=== PATIENT | female | born 1955 | race Two or more races ===

== ENCOUNTER 2018-04-01 09:35 | Emergency (ER) | payer OTHER, BC ==
[2018-04-01 09:53] VITALS: BMI 27.0
[2018-04-01] MEDS ORDERED: SODIUM CHLORIDE 1,000 ML IV STA ×2 (10:25→15:11)
[2018-04-01] MEDS ORDERED: KETOROLAC TROMETHAMINE 30 MG/1 ML VIAL IVPUSH ONE (10:25)
[2018-04-01] MEDS ORDERED: ONDANSETRON 4 MG/2 ML VIAL IVPUSH ONE (10:25)
[2018-04-01] MEDS ORDERED: KETOROLAC TROMETHAMINE 30 MG/1 ML VIAL ONE (10:29)
[2018-04-01] MEDS ORDERED: ONDANSETRON 4 MG/2 ML VIAL ONE (10:30)
--- NOTE | 2018-04-01 10:42 | PDOC ---
History of Present Illness - General Chief Complaint: Pain, Acute Stated Complaint: PAIN Time Seen by Provider: 04/01/18 10:00 History Source: Patient Exam Limitations: No Limitations - History of Present Illness Travel History: No Initial Comments: 04/01/18 11:08 62-year-old female presents the emergency department with complaints of left flank pain rating down her left lower quadrant since yesterday now with nausea and chills. Patient denies any urinary complaints bowel complaints, bowel distention or GI history. Patient denies recent travel and recent illness. Timing/Duration: reports: constant, getting worse Quality: reports: moderate, cramping, sharpness Abdominal Pain Onset Location: reports: flank Pain Radiation: reports: LLQ Activities at Onset: reports: none Aggravating Factors: improves with: None Alleviating Factors: improves with: None Past History - Travel Traveled outside of the country in the last 30 days: No - Past Medical History Allergies/Adverse Reactions: Allergies Allergy/AdvReac Type Severity Reaction Status Date / Time ramipril [From Altace] Allergy Verified 04/01/18 09:51 Home Medications: Ambulatory Orders Albuterol Sulfate Inhaler - [Ventolin HFA Inhaler -] 1 - 2 inh PO PRN PRN Escitalopram Oxalate [Lexapro -] 10 mg PO DAILY 05/29/14 Levothyroxine [Synthroid -] 75 mcg PO DAILY 05/29/14 Losartan Potassium 100 mg PO DAILY 05/29/14 Gabapentin 600 mg PO DAILY 04/01/18 Zolpidem Tartrate [Ambien] 10 mg PO HS 04/01/18 Asthma: No COPD: No HTN: Yes Liver Disease: Yes - Family Disease History Family Disease History: Diabetes: Mother, [place]: Brother - Immunization History Immunization Up to Date: Yes (flu ) - Suicide/Smoking/Psychosocial Hx Smoking History: Never smoked Have you smoked in the past 12 months: No Information on smoking cessation initiated: No Hx Alcohol Use: No Drug/Substance Use Hx: No Substance Use Type: None Review of Systems - Review of Systems Is the patient limited Korean proficient: No Constitutional: No: Symptoms Reported HEENTM: No: Symptoms Reported Respiratory: No: Symptoms reported Cardiac (ROS): No: Symptoms Reported ABD/GI: Yes: Nausea. No: Constipated, Diarrhea, Vomiting, Indigestion, Abdominal cramping : Yes: Flank Pain Musculoskeletal: No: Symptoms Reported Integumentary: No: Symptoms Reported Neurological: No: Symptoms reported Hematologic/Lymphatic: No: Symptoms Reported *Physical Exam - Vital Signs Last Vital Signs Temp Pulse Resp BP Pulse Ox 98.7 F 94 H 20 148/72 97 04/01/18 09:51 04/01/18 09:51 04/01/18 09:51 04/01/18 09:51 04/01/18 09:51 - Physical Exam General Appearance: Yes: Nourished, Appropriately Dressed. No: Apparent Distress HEENT: negative: Pale Conjunctivae Respiratory/Chest: positive: Lungs Clear, Normal Breath Sounds. negative: Respiratory Distress, Accessory Muscle Use Cardiovascular: positive: Regular Rhythm, Regular Rate. negative: Murmur Gastrointestinal/Abdominal: positive: Normal Bowel Sounds, Soft, Tenderness ( Left upper quadrant left flank left lower quadrant) Musculoskeletal: positive: CVA Tenderness (L) Extremity: positive: Normal Capillary Refill. negative: Pedal Edema Integumentary: positive: Normal Color, Warm, Moist. negative: Rash Neurologic: positive: Motor Strength 5/5 ( ambulatory) Moderate Sedation - Procedure Monitoring Vital Signs: Procedure Monitoring Vital Signs Temperature 98.7 F 04/01/18 09:51 Pulse Rate 94 H 04/01/18 09:51 Respiratory Rate 20 04/01/18 09:51 Blood Pressure 148/72 04/01/18 09:51 O2 Sat by Pulse Oximetry (%) 97 04/01/18 09:51 ED Treatment Course - LABORATORY CBC & Chemistry Diagram: 04/01/18 10:53 04/01/18 12:02 Medical Decision Making - Medical Decision Making 04/01/18 11:01 Complaint: Left flank pain with nausea since yesterday. Patient has no history of renal colic or GI disorders. Exam: Left flank left lower quadrant pain patient also with CVA tenderness. Plan: Labs, urine, antiemetics, IV fluids and Toradol. 04/01/18 14:42 Laboratory Tests 04/01/18 04/01/18 10:53 12:02 Sodium 140 Chloride 108 H Carbon Dioxide 24 Anion Gap 8 BUN 12 Creatinine 0.7 Random Glucose 97 Calcium 8.3 L Total Bilirubin 0.5 AST 10 L Alkaline Phosphatase 96 Total Protein 7.2 Albumin 3.5 Lipase 112 Urine Protein 2+ H Urine Blood 2+ H Urine WBC (Auto) 280 Urine RBC (Auto) 12 Patient ordered for dose of IV ceftriaxone and a spiral CT to rule out renal colic/infected stone. Patient states feeling much better 04/01/18 14:43 04/01/18 15:[address] shows mild dilatation of the right pelvis which has decreased since prior examination from 2015 without evidence of right hydroureteral or obstructing stone. Large left renal/parapelvic cyst seen with diffuse cortical thinning again seen. Interval significant stranding of the perinephric fat. There is now moderate dilatation of the distal left ureter without evidence of obstructing stone. There is no free air or free fluid in the abdomen or pelvis. There are multiple mesenteric and periaortic lymph nodes measuring up to 1.2 cm which are nonspecific. Correlate to determine further evaluation. Scattered diverticula in the colon without evidence of acute diverticulitis. 04/01/18 15:12 Repeat vital stable. Patient wants to go home. Patient given strict instructions on what to do for follow-up along with seeing her primary care doctor marcelino later this week. Patient understands to start antibiotics tomorrow Selected Entries 04/01/18 13:43 Temperature 98.1 F Pulse Rate [ 78 Right Radial] Respiratory 18 Rate O2 Sat by Pulse 99 Oximetry (%) Laboratory Tests 04/01/18 10:53 WBC 19.1 H Hgb 13.8 Hct 42.3 Absolute Neuts (auto) 16.6 H Neutrophils % 87.0 H D Lymphocytes % 4.7 L D *DC/Admit/Observation/Transfer Diagnosis at time of Disposition: Pyelonephritis - Discharge Dispostion Disposition: HOME Condition at time of disposition: Improved - Referrals Referrals: Eliseo Head MD [Primary Care Provider] - - Patient Instructions Printed Discharge Instructions: DI for Kidney Infection Additional Instructions: Start antibiotics tomorrow and complete them. Please drink at least 2 L of water on a daily basis. May take Tylenol for discomfort and if symptoms worsen despite above recommendations please return to the ED immediately. Otherwise follow-up with your primary care doctor later this week. - Post Discharge Activity
[2018-04-01] MEDS ORDERED: morphine CARPU-JECT 2 MG/1 ML DISP.SYRIN IVPUSH ONE (13:24)
[2018-04-01] MEDS ORDERED: MORPHINE SULFATE 2 MG/ML VIAL ONE (13:34)
[2018-04-01 13:42] LABS: URINE APPEARANCE CLOUDY; URINE BILIRUBIN NEGATIVE (<2.0 mg/dL); URINE COLOR YELLOW; URINE GLUCOSE (UA) NEGATIVE (NEGATIVE); URINE KETONE NEGATIVE (NEGATIVE); URINE LEUK ESTERASE 3+ (NEGATIVE); URINE NITRITE NEGATIVE (NEGATIVE); URINE PROTEIN 2+ (NEGATIVE); URINE UROBILINOGEN NEGATIVE mg/dL (0.2-1.0)
[2018-04-01 13:45] VITALS: BP 125/62; PULSE 78; TEMP 98.1
[2018-04-01] MEDS ORDERED: CEFTRIAXONE 1 GM in DEXTROSE 5%-WATER - 50 ML IVPB ONE (14:11)
[2018-04-01 14:12] LABS: EPI CELLS RARE /HPF (FEW); URINE BACTERIA RARE /hpf (NONE SEEN)
[2018-04-01 14:14] LABS: ANION GAP 8 MMOL/L (8-16); BLOOD UREA NITROGEN 12 mg/dL (7-18); CALCIUM 8.3 mg/dL (8.5-10.1); CHLORIDE 108 mmol/L (98-107); CO2 24 mmol/L (21-32); CREATININE 0.7 mg/dL (0.55-1.3); GLUCOSE,RANDOM 97 mg/dL (74-106); POTASSIUM 4.4 mmol/L (3.5-5.1); SODIUM 140 mmol/L (136-145)
[2018-04-01 14:15] LABS: ALBUMIN 3.5 g/dl (3.4-5.0); ALK PHOS 96 U/L (45-117); BILIRUBIN,TOTAL 0.5 mg/dL (0.2-1); LIPASE 112 U/L (73-393); SGOT/AST 10 U/L (15-37); SGPT/ALT 19 U/L (13-61); TOT PROT 7.2 g/dl (6.4-8.2)
[2018-04-01 14:42] LABS: BASO % 0.5 % (0-2.0); EOS % 0.3 % (0-4.5); HEMATOCRIT 42.3 % (32.4-45.2); HEMOGLOBIN 13.8 GM/dL (10.7-15.3); LYMPH % 4.7 % (8-40); MCH 31.4 pg (25.7-33.7); MCHC 32.5 g/dl (32.0-36.0); MEAN CELL VOLUME 96.5 fl (80-96); MEAN PLT VOLUME 9.9 fl (7.5-11.1); MONO % 7.5 % (3.8-10.2); PLATELET COUNT 242 K/MM3 (134-434); RBC 4.39 M/mm3 (3.60-5.2); RDW 13.6 % (11.6-15.6); WHITE BLOOD COUNT 19.1 K/mm3 (4.0-10.0)
== END 2018-04-01 16:02 | disposition home or self-care (01) ==
LOC: JER 09:35
PROC: 3E0337Z Introduction of Electrolytic and Water Balance Substance into Peripheral Vein, Percutaneous Approach (ICD-10-PCS; principal; 2018-04-01)
PROC: 3E03329 Introduction of Other Anti-infective into Peripheral Vein, Percutaneous Approach (ICD-10-PCS; 2018-04-01)
PROC: 3E033NZ Introduction of Analgesics, Hypnotics, Sedatives into Peripheral Vein, Percutaneous Approach (ICD-10-PCS; 2018-04-01)
DX: N12 Tubulo-interstitial nephritis, not specified as acute or chronic (principal)
CPT/HCPCS: 36415; 74176; 80053; 81003; 81015; 83690; 85025; 87086; 87186; 96361; 96365; 96375; 99283-25; J7030

== ENCOUNTER 2020-11-22 14:12 | Emergency (ER) | payer OTHER, BC ==
[2020-11-22 14:18] VITALS: BP 148/77; PULSE 69; TEMP 97.4; BMI 25.1
[2020-11-22] MEDS ORDERED: LIDOCAINE 5% TOPICAL PATCH TP ONE (17:21)
[2020-11-22] MEDS ORDERED: LIDOCAINE 5% TOPICAL PATCH ONE (18:22)
[2020-11-22] MEDS ORDERED: LIDOCAINE PATCH REMOVAL MC SCH (22:00)
== END 2020-11-22 18:30 | disposition home or self-care (01) ==
LOC: JER 14:12
DX: J34.2 Deviated nasal septum (principal); W18.2XXA Fall in (into) shower or empty bathtub, initial encounter
CPT/HCPCS: 70450-TC; 72125-TC; 72128-TC; 72170-TC-FY; 73010-TC-FY; 73030-TC-RT-FY; 73060-TC-RT-FY; 99285-25

== ENCOUNTER 2022-05-16 14:56 | Emergency (ER) | payer OTHER, BC ==
[2022-05-16 15:16] VITALS: BP 151/74; PULSE 67; RESP 18; TEMP 97.8; BMI 25.3
[2022-05-16 16:58] LABS: BASO % 1.1 % (0-2.0); EOS % 4.7 % (0-4.5); HEMATOCRIT 39.1 % (32.4-45.2); HEMOGLOBIN 13.1 GM/dL (10.7-15.3); LYMPH % 27.1 % (8-40); MCH 32.3 pg (25.7-33.7); MCHC 33.5 g/dl (32.0-36.0); MEAN CELL VOLUME 96.2 fl (80-96); MEAN PLT VOLUME 8.4 fl (7.5-11.1); MONO % 9.5 % (3.8-10.2); NEUT % 57.6 % (42.8-82.8); PLATELET COUNT 244 10^3/uL (134-434); RBC 4.07 M/mm3 (3.60-5.2); WHITE BLOOD COUNT 6.5 K/mm3 (4.0-10.0)
[2022-05-16 17:03] LABS: INR 1.07 (0.83-1.09); PROTHROMBIN TIME (PATIENT) 12.4 SEC (9.7-13.0)
[2022-05-16 17:06] LABS: ACTIVATED PTT 31.7 SECONDS (25.2-36.5)
[2022-05-16] MEDS ORDERED: MAG HYDROX/AL HYDROX/SIMETH -MYLANTA- ORAL SUSPENSION PO ONE (17:06)
[2022-05-16] MEDS ORDERED: ACETAMINOPHEN 1000 MG/100 ML BAG IVPB ONE (17:06)
[2022-05-16] MEDS ORDERED: MAG HYDROX/AL HYDROX/SIMETH 30 ML UNIT-DOSE CUP ONE (17:14)
[2022-05-16] MEDS ORDERED: ACETAMINOPHEN INJECTION 100 ML IVPB ONE (17:14)
[2022-05-16] MEDS ORDERED: LACTATED RINGERS SOLUTION 1,000 ML/1,000 ML INFUS.BAG IV SCH (17:15)
[2022-05-16 17:17] LABS: PH,URINE 5.5 (5.0-8.0); URINE APPEARANCE CLEAR; URINE BILIRUBIN NEGATIVE (NEGATIVE); URINE COLOR YELLOW; URINE GLUCOSE (UA) NEGATIVE (NEGATIVE); URINE KETONE NEGATIVE (NEGATIVE); URINE LEUK ESTERASE NEGATIVE (NEGATIVE); URINE NITRITE NEGATIVE (NEGATIVE); URINE PROTEIN TRACE (NEGATIVE); URINE UROBILINOGEN 0.2 mg/dL (0.2-1.0)
[2022-05-16 17:19] LABS: BLOOD UREA NITROGEN 18.2 mg/dL (7-18); CALCIUM 10.6 mg/dL (8.5-10.1)
[2022-05-16 17:20] LABS: ALBUMIN 4.5 g/dl (3.4-5.0)
[2022-05-16 17:24] LABS: BILIRUBIN,TOTAL 0.5 mg/dL (0.2-1); TOT PROT 8.2 g/dl (6.4-8.2)
[2022-05-16 17:29] LABS: CREATININE 0.9 mg/dL (0.55-1.3)
== END 2022-05-16 20:13 | disposition home or self-care (01) ==
LOC: JER 14:56
PROC: 3E0333Z Introduction of Anti-inflammatory into Peripheral Vein, Percutaneous Approach (ICD-10-PCS; principal; 2022-05-16)
DX: K21.9 Gastro-esophageal reflux disease without esophagitis (principal)
CPT/HCPCS: 0241U-QW; 36415; 76705-TC; 80053; 81003; 83605; 83690; 85025; 85610; 85730; 86850; 86900; 86901; 87086; 87186; 93005; 93010; 99285-25